=== PATIENT | male | born 1940 | race Hispanic/Latino ===

== ENCOUNTER → 2024-01-02 | Outpatient (CLI) | payer OTHER, MEDICARE ==
[~2024-01-02] MED LIST: IOHEXOL 350 MG/ML 100ML INFUS..BTL IV ONE
== END | disposition home or self-care (01) ==
LOC: RAH 08:37
PROVIDERS: ATTEND Urology
DX: N28.1 Cyst of kidney, acquired (principal); N40.0 Benign prostatic hyperplasia without lower urinary tract symptoms; R31.29 Other microscopic hematuria
CPT/HCPCS: 74178; Q9967